=== PATIENT | female | born 1980 | race Caucasian/White ===

== ENCOUNTER 2021-05-28 14:30 | Emergency (ER) | payer SELFPAY ==
--- OUTSIDE RECORDS SUMMARY | 2021-05-28 14:33 | XMS REPORT | Continuity of Care Document ---
:1980 Author Organization [facility] t Address 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 Attending Clinician SPEAR Attending Clinician Unavailable Payers Payer Name Policy Type Policy Number Effective Date Expiration Date S ource Advance Directives Directive Decision Effective Termination Comments Source Date Date Healthcare Agents on N/A Univ ersity FileNameRelationshipHealthcare [facility] Agent Medical RelationshipCommunicationRobert [facility] Care [phone] (Home) Problems Condition Condition Condition Status Onset Resolution Last Treating Co mments Source Name Details Category Date Date Treatment Clinician Date Disease Active U nivers care and care and 4-09 ity of [place]in[place] Medical immediatel immediatel Br anch y after y after delivery delivery Disease Active Unive rs delivery delivery 3-20 [place] Blood [place] Blood loss Disease Active U nivers anemia anemia 3-20 ity of 00:00: [address] S/P S/P Disease Active Univers 3-19 ity of section section 00:00: [address] Obesity Obesity Disease Active Univers (BMI (BMI 3-17 ity of 30-39.9) 30-39.9) 00:00: [place] 00 Medical Branch History of History of Disease Active 2016-03 U nivers anxiety anxiety 0-04 ity of 00:00: 00 Medical Branch H/O H/O Disease Active 2016-03 Univers gastric gastric 0-04 ity of bypass bypass 00:00: [place] [facility] History of History of Disease Active U nivers depression depression 1-10 it y of 00:00: [place] [facility] Tobacco Tobacco Disease Active 2012-03 Univers use use 0-02 ity of disorder disorder 00:00: [place] [facility] Allergies, Adverse Reactions, Alerts Allergy Allergy Status Severity Reaction(s) Onset Inactive Treating Comm ents Source Name Type Date Date Clinician Meperidi Propensi Active Hallucinatio 2012-03 Univers ne Hcl ty to ns 0-02 ity of adverse 00:00: [place] reaction 00 [facility] MEPERIDI DRUG Active Hallucinates 2012-03 Un claudio NE HCL INGREDI 0-02 ity of 00:00: [place] [facility] Social History Social Habit Start Date Stop Date Quantity Comments Source History of tobacco 1999-03-25 Cigarette Smoker University of use 00:00:00 [facility] Exposure to Not sure [place] of SARS-CoV-2 (event) [facility] Alcohol intake 2021-05-11 2021-05-11 Current University of 00:00:00 00:00:00 non-drinker of [facility] alcohol Branch (finding) Cigarettes smoked 2016-02-15 2016-02-15 Univers ity of current (pack per 00:00:00 00:00:00 [place] ) - Reported Branch Cigarette 2016-02-15 2016-02-15 University of pack-years 00:00:00 00:00:00 [facility] Tobacco use and 2016-02-15 2016-02-15 Never used Universit y of exposure 00:00:00 00:00:00 [facility] Sex Assigned At [birth year] Universit y of 00:00:00 00:00:00 [facility] Smoking Status Start Date Stop Date Source Current every day smoker 2016-02-15 00:00:00 Uni versity of [facility] Medications Ordered Filled Start Stop Current Ordering Indication Dosage Frequency Signature Comments Components Source Medication Medication Date Date Medication? Clinician (SIG) Name Name hydrOXYzine Yes [id number] 25mg Take 1 Univers 25 mg 2-17 tablet by ity of tablet 00:00: mouth [place] 00 every 6 Medical (six) Branch hours as needed for Itching. permethrin 2021- Yes [id number] Apply to Univers 1 % lotion -17 05-12 area(s) ity o f 00:00: 05:59 once now [place] 00 :00 for 1 Medical dose. Branch follow package directions Yes 1{tbl} Take 1 Unive rs vitamin 3-19 tablet by ity of w/FA tablet 00:00: mouth [place] 00 daily. Medical Branch docusate Yes 240mg Take 1 Univer s calcium 240 3-19 capsule by it y of mg capsule 00:00: mouth [place] 00 daily as Medical needed for Branch Constipati on. ferrous Yes 325mg Take 1 Univers sulfate 325 3-19 tablet by ity of mg (65 mg 00:00: mouth 2 [place] iron) 00 (two) Medical tablet times Branch daily. ibuprofen Yes 600mg Take 1 Unive rs 600 mg 3-19 tablet by ity of tablet 00:00: mouth [place] 00 every 6 Medical (six) Branch hours as needed for Pain (scale 1-3) or Pain (scale 4-6) (Pain). Take with food or milk. HYDROcodone Yes 1{tbl} Take 1-2 Univers -acetaminop 3-19 tablets by it y of hen 5-325 00:00: mouth [place] mg tablet 00 every 6 Medical (six) Branch hours as needed for Pain (scale 4-6). Do not exceed 3 grams of acetaminop hen in 24 hours. Immunizations Ordered Filled Immunization Date Status Comments Sour e Immunization Name Name TDAP 2017-03-22 Completed University of 00:00:00 [facility] Influenza Virus 2016-12-26 Completed Universit y of Vaccine Quad IM 3+ 00:00:00 [facility] Branch PPD (TB) 2016-12-26 Completed University of 00:00:00 [facility] TDAP 2012-12-24 Completed University of 00:00:00 [facility] Rubella 2010-02-28 Completed University of 00:00:00 [facility] Td 2001-03-25 Completed University of 00:00:00 [facility] Vital Signs Vital Name Observation Time Observation Value Comments Source Systolic blood 2021-05-12 01:06:00 128 mm[Hg] Univer sity of pressure [facility] Diastolic blood 2021-05-12 01:06:00 77 mm[Hg] Unive rsity of pressure [facility] Heart rate 2021-05-12 01:06:00 71 /min Universi ty of [facility] Body temperature 2021-05-12 01:06:00 36.89 Bianca [facility] Respiratory rate 2021-05-12 01:06:00 16 /min [facility] ersity of [facility] Body height 2021-05-12 01:06:00 160 cm Universi ty of [facility] Body weight 2021-05-12 01:06:00 56.7 kg Universi ty [facility] BMI 2021-05-12 01:06:00 22.14 kg/m2 [facility] Oxygen saturation in 2021-05-12 01:06:00 100 /min [facility] Arterial blood by [facility] Pulse oximetry Branch Procedures Procedure Date / Time Performed Performing Clinician Sour e NOTICE OF PRIVACY 2021-05-12 01:02:04 Doctor Unassigned, No Univ [facility] PRACTICES Name [facility] CONSENT/REFUSAL FOR 2021-05-12 01:01:02 [facility]igned, [facility] DI[facility]NOSIS AND Name Medical Branch TREATMENT Encounters Start End Encounter Admission Attending Care Care Encounter Source Date/Time Date/Time Type Type Clinicians Facility Department ID 2021-05-11 2021-05-11 Emergency Spear, [facility] [id number] Univers 19:09:00 20:34:00 Janey GUAJARDO [id number] i ty [facility] [id number] [facility] [id number] Medi lacey 084 Branch 2021-05-11 2021-05-11 Emergency X RAINER, [facility] ERT [id number] Univers 19:09:00 20:34:00 JANEY manjarrez [facility] Results This patient has no known results.
--- NOTE | 2021-05-28 14:55 | EDPHYS ---
Physician Documentation [facility] Name: Melissa Saunders Age: 40 yrs Sex: Female : 1980 Arrival Date: 05/28/2021 Time: 14:32 Bed Waiting Private MD: ED Physician Thomas Higgins HPI: 05/28 14:55 This 40 yrs old Female presents to ER via Ambulatory with complaints of Allergic kb Reaction. 14:55 The patient presents with rash. Onset: The symptoms/episode began/occurred has been on kb and off for a year. Associated signs and symptoms: Pertinent positives: itching. Possible causes: The patient has no known obvious cause for the symptoms. At home the patient or guardian has treated the symptoms with nothing. Severity of symptoms: At their worst the symptoms were moderate in the emergency department the symptoms are unchanged. The patient has not experienced similar symptoms in the past. The patient has not recently seen a physician. Pt states she has had a rash that comes and goes for a year. States she has seen dr ordonez for this several times and he has done tests and given medications, but they haven't taken it away. 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 - Social history:: Smoking status: Patient reports the use of cigarette tobacco products, smokes one pack cigarettes per day. ROS: 14:55 Constitutional: Negative for fever, chills, and weight loss. kb 14:55 Skin: Positive for of the face, right arm and left arm. 14:55 All other systems are negative. Exam: 14:54 Constitutional: This is a well developed, well nourished patient who is awake, alert, kb and in no acute distress. Head/Face: Normocephalic, atraumatic. ENT: Moist Mucous membranes Cardiovascular: Regular rate and rhythm with a normal S1 and S2. No gallops, murmurs, or rubs. No pulse deficits. Respiratory: Respirations even and unlabored. No increased work of breathing. Talking in full sentences MS/ Extremity: Pulses equal, no cyanosis. Neurovascular intact. Full, normal range of motion. Neuro: Awake and alert, GCS 15, oriented to person, place, time, and situation. Moves all extremities. Normal gait. Psych: Awake, alert, with orientation to person, place and time. Behavior, mood, and affect are within normal limits. 14:54 Skin: rash a mild rash is noted, on the face. Vital Signs: 14:47 BP 140 / 63; Pulse 96; Resp 16; Pulse Ox 100% ; Weight 54.43 kg; Height 5 ft. 4 in. vg1 (162.56 cm); Pain 0/10; 14:47 Body Mass Index 20.60 (54.43 kg, 162.56 cm) vg1 MDM: 14:53 Data reviewed: vital signs, nurses notes. Data interpreted: Pulse oximetry: on room air kb is 100 %. Interpretation: normal. Counseling: I had a detailed discussion with the patient and/or guardian regarding: the historical points, exam findings, and any diagnostic results supporting the discharge/admit diagnosis, the need for outpatient follow up, a family practitioner, to return to the emergency department if symptoms worsen or persist or if there are any questions or concerns that arise at home. 14:53 Patient medically screened. kb Administered Medications: No medications were administered Disposition: 18:52 Co-signature as Attending Physician, Thomas Higgins MD I agree with the assessment and rn plan of care. Attestation: The patient's history, exam findings, diagnostics, and a summary of any interventions or procedures was reviewed in detail with Jennie SAVAGE. Disposition Summary: 05/28/21 14:53 Discharge Ordered Location: Home kb Condition: Stable kb Diagnosis - Rash and other nonspecific skin eruption kb Followup: kb - With: Emergency Department - When: As needed - Reason: Worsening of condition Followup: kb - With: Private Physician - When: 2 - 3 days - Reason: Recheck today's complaints, Continuance of care, Re-evaluation by your physician Discharge Instructions: - Discharge Summary Sheet kb - Rash, Adult, [id number] kb Forms: - Medication Reconciliation Form kb - Thank You Letter kb - Antibiotic Education kb - Prescription Opioid Use kb Prescriptions: - Elimite 5 % Topical Cream - apply 1 application by TOPICAL route one time Wash after 12 hours.; 60 gram; kb Refills: 0, Product Selection Permitted - Doxycycline Hyclate 100 mg Oral Tablet - take 1 tablet by ORAL route every 12 hours; 14 tablet; Refills: 0, Product kb Selection Permitted Signatures: Jennie Kinney, JANETTE JIMENEZ-Thomas Arce MD MD rn Giovani, SHAKIRA Cline RN vg1
--- NOTE | 2021-05-28 14:55 | ER ---
Nurse's Notes [facility] Name: Melissa Saunders Age: 40 yrs Sex: Female : 1980 Arrival Date: 05/28/2021 Time: 14:32 Bed Waiting Private MD: Diagnosis: Rash and other nonspecific skin eruption Presentation: 05/28 14:47 Chief complaint: Patient states: "Im having another allergic reaction but im not too vg1 sure to what" Has been seeing Dr Zhou for a skin rash. States rash on GISEL arms and face. Coronavirus screen: Vaccine status: Patient reports receiving the 2nd dose of the covid vaccine. Client denies travel out of the [place] in the last 14 days. Ebola Screen: Patient negative for fever greater than or equal to 101.5 degrees Fahrenheit, and additional compatible Ebola Virus Disease symptoms. Onset: The symptoms/episode began/occurred 1 year(s) ago. Anaphylaxis evaluation, no signs or symptoms of anaphylaxis were noted. Initial Sepsis Screen: Does the patient meet any 2 criteria? No. Patient's initial sepsis screen is negative. Does the patient have a suspected source of infection? No. Patient's initial sepsis screen is negative. Risk Assessment: Do you want to hurt yourself or someone else? Patient reports no desire to harm self or others. Onset of symptoms was May 2020. 14:47 Method Of Arrival: Ambulatory 1 14:47 Acuity: BETH 4 vg1 Triage Assessment: 14:51 General: Appears in no apparent distress. uncomfortable, Behavior is cooperative. Pain: vg1 Denies pain. 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 - Social history:: Smoking status: Patient reports the use of cigarette tobacco products, smokes one pack cigarettes per day. Screenin:57 Abuse screen: Denies threats or abuse. Nutritional screening: No deficits noted. vg1 Tuberculosis screening: No symptoms or risk factors identified. Fall Risk No fall in past 12 months (0 pts). No secondary diagnosis (0 pts). No IV (0 pts). Ambulatory Aid- None/Bed Rest/Nurse Assist (0 pts). Gait- Normal/Bed Rest/Wheelchair (0 pts) Mental Status- Oriented to own ability (0 pts). Total Peguero Fall Scale indicates No Risk (0-24 pts). Assessment: 14:58 Respiratory: Airway is patent Respiratory effort is even, unlabored, Breath sounds are vg1 clear bilaterally. Vital Signs: 14:47 BP 140 / 63; Pulse 96; Resp 16; Pulse Ox 100% ; Weight 54.43 kg; Height 5 ft. 4 in. vg1 (162.56 cm); Pain 0/10; 14:47 Body Mass Index 20.60 (54.43 kg, 162.56 cm) vg1 ED Course: 14:32 Patient arrived in ED. as 14:37 Jennie Kinney FNP-C is [facility]. kb 14:37 Thomas Higgins MD is Attending Physician. kb 14:51 Triage completed. vg1 14:51 Arm band placed on. vg1 14:57 Patient has correct armband on for positive identification. vg1 14:57 No provider procedures requiring assistance completed. Patient did not have IV access vg1 during this emergency room visit. Administered Medications: No medications were administered Outcome: 14:53 Discharge ordered by . kb 14:57 Discharged to home ambulatory. vg1 14:57 Condition: good 14:57 Discharge instructions given to patient, Instructed on discharge instructions, follow up and referral plans. medication usage, Demonstrated understanding of instructions, follow-up care, medications, Prescriptions given X 2. 14:58 Patient left the ED. vg1 Signatures: Jennie Kinney FNP-C FNP-Keira Griffith Victoria, RN RN vg1
[2021-05-28 15:03] VITALS: BP 140/63; O2SAT 100
== END 2021-05-28 14:58 | disposition home or self-care (01) ==
LOC: ER 14:30
DX: R21 Rash and other nonspecific skin eruption (principal); F17.210 Nicotine dependence, cigarettes, uncomplicated; Z88.5 Allergy status to narcotic agent
CPT/HCPCS: 99281

== ENCOUNTER 2021-07-11 15:32 | Emergency (ER) | payer SELFPAY ==
--- OUTSIDE RECORDS SUMMARY | 2021-07-11 15:36 | XMS REPORT | Continuity of Care Document ---
:1980 Author Organization [facility] t Address 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 Clinician SPEAR Attending Clinician Unavailable Nguyen_Tho Admitting Clinician Unavailable Payers Payer Name Policy Type Policy Number Effective Date Expiration Date S ource Advance Directives Directive Decision Effective Termination Comments Source Date Date Healthcare Agents on N/A Univ ersity FileNameRelationB[facility] Agent Medical RelationshipCommunicationRobert Branch [facility] Care [phone] (Home) Problems Condition Condition Condition Status Onset [...] 3-20 [place] [address] Blood loss Blood loss Disease Active U nivers anemia anemia 3-20 ity of 00:00: [address] S/P S/P Disease Active Univers 3-19 ity of section section 00:00: [place] 00 Medical Branch Obesity Obesity Disease Active Univers (BMI (BMI 3-17 ity of 30-39.9) 30-39.9) 00:00: [place] 00 Medical Branch History of History of Disease Active 2016-03 U hectorers anxiety anxiety 0-04 ity of 00:00: [place] 00 Medical Branch H/O H/O Disease Active 2016-03 Univers gastric gastric 0-04 ity of bypass bypass 00:00: [place] 00 Medical Branch History of History of Disease Active U nivers depression depression 1-10 it y of 00:00: [place] 00 [facility] Branch Tobacco Tobacco Disease Active 2012-03 Univers use use 0-02 ity of disorder disorder 00:00: [place] 00 [facility] [place] Allergies, Adverse Reactions, Alerts Allergy Allergy Status Severity Reaction(s) Onset Inactive Treating Comm ents Source Name Type Date Date Clinician Meperidi Propensi Active Hallucinatio 2012-03 Univers ne Hcl ty to ns 0-02 ity of adverse 00:00: [place] reaction 00 Medical s Branch MEPERIDI DRUG Active Hallucinates 2012-03 Un claudio NE HCL INGREDI 0-02 ity of 00:00: [place] 00 [facility] Social History Social Habit Start Date Stop Date Quantity Comments Source History of tobacco 1999-03-25 Cigarette Smoker University of use 00:00:00 [facility] Exposure to Not sure [place] of SARS-CoV-2 (event) [facility] Alcohol intake 2021-05-11 2021-05-11 Current University of 00:00:00 00:00:00 non-drinker of [facility] alcohol Branch (finding) Cigarettes smoked 2016-02-15 2016-02-15 Univers ity of current (pack per 00:00:00 00:00:00 ) - Reported Branch Cigarette 2016-02-15 2016-02-15 University of pack-years 00:00:00 00:00:00 [facility] Tobacco use and 2016-02-15 2016-02-15 Never used Universit y of exposure 00:00:00 00:00:00 [facility] Sex Assigned At [birth year] Universit y of 00:00:00 00:00:00 [facility] Smoking Status Start Date Stop Date Source Current every day smoker 2016-02-15 00:00:00 Uni versity of [facility] Medications Ordered Filled Start Stop Current Ordering Indication Dosage Frequency Signature Comments Components Source Medication Medication Date Date Medication? Clinician (SIG) Name Name hydrOXYzine Yes [id number] 25mg Take 1 Univers 25 mg 2-17 tablet by ity of tablet 00:00: mouth [place] 00 every 6 Medical (six) Branch hours as needed for Itching. permethrin 2021- Yes [id number] Apply to Univers 1 % lotion 2-17 05-12 area(s) ity o f 00:00: 05:59 [...] e Immunization Name Name TDAP 2017-03-22 Completed [facility] 00:00:00 [facility] Influenza Virus 2016-12-26 Completed Universit y of Vaccine Quad IM 3+ 00:00:00 [place] [facility] Branch PPD (TB) 2016-12-26 Completed [facility] 00:00:00 [facility] TDAP 2012-12-24 Completed University 00:00:00 [facility] Rubella 2010-02-28 Completed University 00:00:00 [facility] Td 2001-03-25 Completed [facility] 00:00:00 [facility] Vital Signs Vital Name Observation Time Observation Value Comments Source Systolic blood 2021-05-12 01:06:00 128 mm[Hg] Univer sity of pressure [facility] Diastolic blood 2021-05-12 01:06:00 77 mm[Hg] Unive rsity of [facility] Heart rate 2021-05-12 01:06:00 71 /min [facility] Body temperature 2021-05-12 01:06:00 36.89 Bianca [facility] Res[facility] rate 2021-05-12 01:06:00 16 /min [facility] Body height 2021-05-12 01:06:00 160 cm [facility] Body weight 2021-05-12 01:06:00 56.7 kg [facility] BMI 2021-05-12 01:06:00 22.14 kg/m2 [facility] Oxygen saturation in 2021-05-12 01:06:00 100 /min [facility] Arterial blood by [facility] Pulse oximetry Branch Procedures Procedure Date / Time Performed Performing Clinician [facility] e NOTICE OF PRIVACY 2021-05-12 01:02:04 Doctor Unassigned, No Univ [facility] PRACTICES Name [facility] CONSENT/REFUSAL FOR 2021-05-12 01:01:02 [facility], [facility] DI[facility] AND Name Medical Branch TREATMENT Encounters Start End Encounter Admission Attending Care Care Encounter Source Date/Time Date/Time Type Type Clinicians Facility Department ID 2021-07-05 2021-07-05 [facility] [place] [id number] [place] 01:03:00 01:03:00 [id number] [facility] 2021-07-04 2021-07-04 [facility] [id number] [place] 01:42:00 01:42:00 [id number] [facility] 2021-05-11 2021-05-11 Emergency Spear, [facility] [id number] [facility] 19:09:00 20:34:00 Janey GUAJARDO [id number] i ty of [facility] [id number] [facility] [id number] [place] [id number] Branch 2021-05-11 2021-05-11 Emergency X RAINER [facility] [id number] Univers 19:09:00 20:34:00 JANEY manjarrez of [facility] Results This patient has no known results.
--- NOTE | 2021-07-11 15:46 | EDPHYS ---
Physician Documentation [facility] Name: Melissa Saunders Age: 40 yrs Sex: Female : 1980 Arrival Date: 07/11/2021 Time: 15:34 Bed Waiting Private MD: David Zhou H ED Physician Tanner Pierce HPI: 07/11 15:45 This 40 yrs old Female presents to ER via Ambulatory with complaints of Allergic pm1 Reaction, Itching. 15:45 The patient presents with rash, that is diffuse. pm1 15:45 Onset: The symptoms/episode began/occurred 1 year(s) ago. Associated signs and pm1 symptoms: The patient has no apparent associated signs or symptoms. Possible causes: Parasites. At home the patient or guardian has treated the symptoms with nothing. Severity of symptoms: in the emergency department the symptoms are unchanged. The patient has experienced similar episodes in the past, chronically. Patient has not been seen recently for the same rash but has seen PCP for this and has been given antiparasitic's without improvement. Historical: - Allergies: 15:43 Demerol; iw - PMHx: 15:43 Lupus erythematosus; Rheumatoid Arthritis; iw ROS: 15:45 Constitutional: Negative for fever, chills, and weight loss, Cardiovascular: Negative pm1 for chest pain, palpitations, and edema, Respiratory: Negative for shortness of breath, cough, wheezing, and pleuritic chest pain, Abdomen/GI: Negative for abdominal pain, nausea, vomiting, diarrhea, and constipation, MS/Extremity: Negative for injury and deformity. 15:45 Neuro: Negative for headache, weakness, numbness, tingling, and seizure. 15:45 Skin: Positive for rash, diffusely. 15:45 All other systems are negative. Exam: 15:45 Constitutional: This is a well developed, well nourished patient who is awake, alert, pm1 and in no acute distress. Head/Face: Normocephalic, atraumatic. 15:45 Cardiovascular: Exam negative for acute changes, Rate: normal, Rhythm: regular, Pulses: no pulse deficits are appreciated, Heart sounds: normal. 15:45 Respiratory: Exam negative for acute changes, respiratory distress, shortness of breath, Breath sounds: are clear throughout. 15:45 Skin: Exam negative for consistent with Abrasions from scratching. 15:45 Neuro: Exam negative for acute changes, Orientation: is normal, Mentation: is normal, Motor: is normal, moves all fours, Gait: is steady, at a normal pace, without difficulty. Vital Signs: 15:42 BP 114 / 91; Pulse 100; Resp 16; Temp 98.7; Pulse Ox 100% on R/A; iw MDM: 15:45 Data reviewed: vital signs. Data interpreted: Pulse oximetry: on is 100 %. pm1 Interpretation: normal. Counseling: I had a detailed discussion with the patient and/or guardian regarding: the historical points, exam findings, and any diagnostic results supporting the discharge/admit diagnosis, the need for outpatient follow up, to return to the emergency department if symptoms worsen or persist or if there are any questions or concerns that arise at home. 15:45 Patient medically screened. pm1 Administered Medications: No medications were administered Disposition Summary: 07/11/21 15:45 Discharge Ordered Location: Home pm1 Problem: new pm1 Symptoms: have improved pm1 Condition: Stable pm1 Diagnosis - Rash and other nonspecific skin eruption pm1 Followup: pm1 - With: Emergency Department - When: As needed - Reason: Worsening of condition Followup: pm1 - With: Private Physician - When: 2 - 3 days - Reason: Recheck today's complaints, Continuance of care, Re-evaluation by your physician Discharge Instructions: - Discharge Summary Sheet pm1 - Rash, Adult pm1 Forms: - Medication Reconciliation Form pm1 - Thank You Letter pm1 - Antibiotic Education pm1 - Prescription Opioid Use pm1 Prescriptions: - Vistaril 25 mg Oral capsule - take 1 capsule by ORAL route every 6 hours As needed; 20 capsule; Refills: 0, pm1 Product Selection Permitted - Doxycycline Hyclate 100 mg Oral Tablet - take 1 tablet by ORAL route every 12 hours; 20 tablet; Refills: 0, Product pm1 Selection Permitted Addendum: 07/13/2021 18:38 Co-signature as Attending Physician, Tanner Pierce MD. m a2 Signatures: Ashley Carreon, RN RN Garret Silva, [employer] LEADER pm1 Tanner Pierce MD MD [facility]
--- NOTE | 2021-07-11 15:46 | ER ---
Nurse's Notes [facility] Name: Melissa Saunders Age: 40 yrs Sex: Female : 1980 Arrival Date: 07/11/2021 Time: 15:34 Bed Waiting Private MD: David Zhou H Diagnosis: Rash and other nonspecific skin eruption Presentation: 07/11 15:42 Chief complaint: Patient states: parasites in her body X 1 year. Coronavirus screen: At iw this time, the client does not indicate any symptoms associated with coronavirus-19. Ebola Screen: Patient negative for fever greater than or equal to 101.5 degrees Fahrenheit, and additional compatible Ebola Virus Disease symptoms Patient denies exposure to infectious person. Patient denies travel to an Ebola-affected area in the 21 days before illness onset. No symptoms or risks identified at this time. Initial Sepsis Screen: Does the patient meet any 2 criteria? No. Patient's initial sepsis screen is negative. Does the patient have a suspected source of infection? No. Patient's initial sepsis screen is negative. 15:42 Method Of Arrival: Ambulatory iw 15:42 Acuity: BETH 4 iw 15:42 Risk Assessment: Do you want to hurt yourself or someone else? Patient reports no iw desire to harm self or others. Onset of symptoms was 2020. Historical: - Allergies: 15:43 Demerol; iw - PMHx: 15:43 Lupus erythematosus; Rheumatoid Arthritis; iw Vital Signs: 15:42 BP 114 / 91; Pulse 100; Resp 16; Temp 98.7; Pulse Ox 100% on R/A; iw ED Course: 15:34 Patient arrived in ED. am2 15:34 David Zhou DO is Private Physician. am2 15:42 Triage completed. iw 15:43 Arm band placed on. iw 15:45 Garret Fontaine NP is PHCP. pm1 15:45 Tanner Pierce MD is Attending Physician. pm1 17:25 Ashley Carreon RN is Primary Nurse. iw Administered Medications: No medications were administered Outcome: 15:45 Discharge ordered by MD. pm1 17:25 Patient left the ED. iw Signatures: Ashley Carreon RN RN iw Marinas, Garret, PUBLIC HEALTH WORKER PUBLIC HEALTH WORKER pm1 Gallegos, Korina am2
[2021-07-11 21:38] VITALS: BP 114/91; TEMP 98.7; O2SAT 100
== END 2021-07-11 17:25 | disposition home or self-care (01) ==
LOC: ER 15:32
DX: R21 Rash and other nonspecific skin eruption (principal); Z88.5 Allergy status to narcotic agent
CPT/HCPCS: 99281

== ENCOUNTER 2022-04-14 01:24 | Emergency (ER) | payer SELFPAY ==
--- OUTSIDE RECORDS SUMMARY | 2022-04-14 01:28 | XMS REPORT | Continuity of Care Document ---
:1980 Author Organization [facility] t Address [address] [place] [address] Care Team Providers Name Role Phone CHIDI AARON Primary Care Physician Unavailable Nguyen_Tho Attending Clinician Unavailable Johnny Javier Attending Clinician JOHNNY JOYNER Attending Clinician Unavailable Ashley Admitting Clinician Unavailable Payers Payer Name Policy Type Policy Number Effective Date Expiration Date S ource Problems Condition Condition Condition Status Onset Resolution Last Treating Co mments Source Name Details Category Date Date Treatment Clinician Date Disease Active U harjinder care and care and 4-09 ity [place] exam[place] [facility] immedi[place] immediatel Br [facility] y after y after delivery delivery Disease Active Unive rs delivery delivery 3-20 ity of delivered delivered 00:00: [place] [address] Blood loss Blood loss Disease Active U nivers anemia anemia 3-20 ity of 00:00: [address] S/P S/P Disease Active Univers 3-19 ity of section section 00:00: [address] Obesity Obesity Disease Active Univers (BMI (BMI 3-17 ity of 30-39.9) 30-39.9) 00:00: [place] 00 [facility] History of History of Disease Active 2016-03 U nivers anxiety anxiety 0-04 ity of 00:00: Medical Branch H/O H/O Disease Active 2016-03 Univers gastric gastric 0-04 ity of bypass bypass 00:00: [place] 00 Medical [place] History of History of Disease Active U nivers depression depression 1-10 it y of 00:00: [place] [facility] Tobacco Tobacco Disease Active 2012-03 Univers use use 0-02 ity of disorder disorder 00:00: [place] [facility] Allergies, Adverse Reactions, Alerts Allergy Allergy Status Severity Reaction(s) Onset Inactive Treating Comm ents Source Name Type Date Date Clinician Meperidi Propensi Active Hives Method i ne ty to 07-21 st adverse 00:00: Hospita reaction 00 l s to drug Meperidi Propensi Active Hallucinatio 2012-03 Univers ne Hcl ty to ns 0-02 ity of adverse 00:00: [place] reaction 00 Medical s Branch MEPERIDI DRUG Active Hallucinates 2012-03 Un claudio NE HCL INGREDI 0-02 ity of 00:00: [place] [facility] Social History Social Habit Start Date Stop Date Quantity Comments Source History of tobacco Smokes tobacco [facility] use daily Hospital Exposure to Not sure University of SARS-CoV-2 (event) [facility] Tobacco use and 2021-07-21 2021-07-21 Smokeless [facility] exposure 00:00:00 00:00:00 tobacco non-user Hospital Alcohol intake 2021-07-21 2021-07-21 Ex-drinker [facility] 00:00:00 00:00:00 (finding) Hospital Cigarettes smoked 2016-02-15 2016-02-15 Univers ity of current (pack per 00:00:00 00:00:00 ) - Reported Branch Cigarette 2016-02-15 2016-02-15 University of pack-years 00:00:00 00:00:00 [facility] Sex Ass[birth year] At [birth year] [facility] 00:00:00 00:00:00 Hospital Smoking Status Start Date Stop Date Source Smokes tobacco daily 2021-07-21 00:00:00 [facility] Medications Ordered Filled Start Stop Current Ordering Indication Dosage Frequency Signature Comments Components Source Medication Medication Date Date Medication? Clinician (SIG) Name Name No known No No known Metho di medications - medication st 16:35: s Hospita 17 l hydrOXYzine Yes [id number] 25mg Take 1 Univers 25 mg 2-17 tablet by ity of tablet 00:00: mouth [place] 00 every 6 Medical (six) Branch hours as needed for Itching. permethrin 2021- No [id number] Apply to Univers 1 % lotion 2-17 18 area(s) ity o f 00:00: 05:59 once [...] Immunizations Ordered Filled Immunization Date Status Comments [facility] Immunization Name Name TDAP 2017-03-22 Completed [facility] 00:00:00 [facility] Influenza Virus 2016-12-26 Completed Universit y of Vaccine Quad IM 3+ 00:00:00 [facility] PPD (TB) 2016-12-26 Completed [facility] 00:00:00 [facility] TDAP 2012-12-24 Completed University of 00:00:00 [facility] Rubella 2010-02-28 Completed University of 00:00:00 [facility] Td 2001-03-25 Completed [facility] 00:00:00 [facility] Vital Signs Vital Name Observation Time Observation Value Comments Source Systolic blood 2021-05-12 01:06:00 128 mm[Hg] Univer sity of pressure [facility] Diastolic blood 2021-05-12 01:06:00 77 mm[Hg] Unive rsity of [facility] Heart rate 2021-05-12 01:06:00 71 [facility] 2021-05-12 01:06:00 36.89 [facility] Respiratory rate 2021-05-12 01:06:00 16 /min [facility] Body height 2021-05-12 01:06:00 160 cm [facility] Body weight 2021-05-12 01:06:00 56.7 kg [facility] BMI 2021-05-12 01:06:00 22.14 kg/m2 [facility] Oxygen saturation in 2021-05-12 01:06:00 100 /min University Arterial blood by [facility] Pulse oximetry [place] Body height 2021-07-21 21:33:00 162.6 cm [facility] Body weight 2021-07-21 21:33:00 52.164 kg [facility] BMI 2021-07-21 21:33:00 19.74 kg/m2 [facility] Systolic blood 2021-07-21 21:29:01 123 mm[Hg] Method ist [facility] pressure Diastolic blood 2021-07-21 21:29:01 65 mm[Hg] [facility] pressure Heart rate 2021-07-21 21:29:01 90 /min [facility] Body temperature 2021-07-21 21:29:01 37.22 Bianca [facility] Respiratory rate 2021-07-21 21:29:01 18 /min [facility] Oxygen saturation in 2021-07-21 21:29:01 99 /min [facility] Arterial blood by Pulse oximetry Procedures Procedure Date / Time Performed Performing Clinician [facility] NOTICE OF PRIVACY 2021-05-12 01:02:04 Doctor Unassigned, No [facility] Name Medical Branch CONSENT/REFUSAL FOR 2021-05-12 01:01:02 [facility], [facility] AND Name Medical Branch TREATMENT Encounters Start End Encounter Admission Attending Care Care Encounter Source Date/Time Date/Time Type Type Clinicians Facility Department ID 2022-01-01 2022-01-01 Outpatient [facility] [id number] Romie 14:03:19 14:03:19 101[address] [facility] 2021-10-19 2021-10-19 Outpatient [place] [id number] [place] 00:00:[facility] 2021-08-20 2021-08-20 Outpatient Nguyen[place]Tho [place] [id number] [place] 11:12:00 11:12:00 [facility] 2021-07-21 2021-07-21 Emergency [id number] [facility] 16:29:00 19:17:[id number] [id number] Hospit [id number] l .8 2021-07-21 2021-07-21 Emergency [facility] [id number] [place] 00:00:00 00:00:[address] 2021-07-05 2021-07-05 Outpatient Nguyen_o [place] [id number] [place] 01:03:00 01:03:00 [id number] [facility] 2021-07-04 2021-07-04 Outpatient Ngen_Tho [facility] [id number] [place] 01:42:00 01:42:00 [id number] [facility] 2021-05-11 2021-05-11 [facility] [id number] Univers 19:09:00 20:34:00 Johnny GUAJARDO [id number] i ty of [facility] [id number] [facility] [id number] [address] 2021-05-11 2021-05-11 Emergency X RAINER, [facility] ERT [id number] 112 [facility] [place] 19:09:00 20:34:00 JOHNNY manjarrez of [facility] Results This patient has no known results.
[2022-04-14 02:25] LABS: Urine Blood Negative (Negative); Urine Glucose Negative (Negative); Urine Protein Negative (Negative)
[2022-04-14 02:50] LABS: Absolute Lymphocytes (CBC) 2.8 K/uL (0.7-4.9); Lymphocytes % 46.7 % (15.3-44.8); MPV 8.5 fL (7.6-11.3); RBC Red Blood Cell Count 3.36 M/uL (3.86-4.86)
[2022-04-14 02:52] LABS: Hematocrit 19.1 % (36.0-45.0)
[2022-04-14 02:55] LABS: Protime INR 0.97
[2022-04-14 03:12] LABS: ALT/SGPT 14 U/L (13-56); AST/SGOT 8 U/L (15-37); Albumin 3.6 g/dL (3.4-5.0); Alkaline Phosphatase 51 U/L (45-117); BUN Blood Urea Nitrogen 11 mg/dL (7-18); Bicarbonate 23 mmol/L (21-32); Bilirubin Total 0.2 mg/dL (0.2-1.0); Glomerular Filtration Rate 118 ml/min (=/>90); Glucose Level 90 mg/dL (74-106); Potassium 3.7 mmol/L (3.5-5.1); Protein, Total 6.4 g/dL (6.4-8.2); Sodium Level 140 mmol/L (136-145)
[2022-04-14 03:13] LABS: Bilirubin Direct < 0.1 mg/dL (0-0.2)
[2022-04-14 03:14] LABS: RBC Red Blood Cell Count 3.33 M/uL (3.86-4.86)
[2022-04-14] MEDS ORDERED: NA CHLORIDE 0.9% 1,000 ML ONE (03:28)
[2022-04-14 03:47] LABS: Anisocytosis 2+; Blood Morphology Comment NOTED (NOT SEEN); Hypochromasia 3+; Macrocytosis 1+; Ovalocytes 2+; Platelet Estimate ADEQ; Platelets, Giant OCC; Stomatocytes 1+
[2022-04-14 03:50] LABS: Barbiturates NEGATIVE (NEGATIVE); Benzodiazepines NEGATIVE (NEGATIVE); Cocaine NEGATIVE (NEGATIVE); METHAMPHETAM POSITIVE (NEGATIVE); Methadone NEGATIVE (NEGATIVE); Opiates NEGATIVE (NEGATIVE); Phencyclidine NEGATIVE (NEGATIVE); THC Cannibis NEGATIVE (NEGATIVE)
[2022-04-14 03:52] LABS: Ferritin 2.2 ng/mL (8-388)
--- NOTE | 2022-04-14 06:31 | ER ---
Nurse's Notes [facility] Name: Melissa Saunders Age: 41 yrs Sex: Female : 1980 Arrival Date: 04/14/2022 Time: 01:26 Bed 14 Private MD: Diagnosis: Abuse of other non-psychoactive substances;Iron deficiency anemia, unspecified;Systemic lupus erythematosus, unspecified;Adverse effect of amphetamines Presentation: 04/14 01:30 Chief complaint: Patient states: feel like im in a fog and in a panic at the same time. lg3 my chest feels numb but tingling at the same time on the left side. my heart is racing. Coronavirus screen: Client denies travel out of the [place] in the last 14 days. At this time, the client does not indicate any symptoms associated with coronavirus-19. Ebola Screen: No symptoms or risks identified at this time. Initial Sepsis Screen: Does the patient meet any 2 criteria? No. Patient's initial sepsis screen is negative. Does the patient have a suspected source of infection? No. Patient's initial sepsis screen is negative. Risk Assessment: Do you want to hurt yourself or someone else? Patient reports no desire to harm self or others. Onset of symptoms was April 13, 2022 at 23:30. 01:30 Method Of Arrival: Ambulatory lg3 01:30 Acuity: BETH 3 lg3 Triage Assessment: 01:33 General: Appears in no apparent distress. Behavior is anxious, restless. Pain: lg3 Complains of pain in anterior aspect of left upper chest Quality of pain is described as numb. EENT: No signs and/or symptoms were reported regarding the EENT system. Neuro: Cardona Agitation-Sedation Scale (RASS): 0 - Alert and Calm Level of Consciousness is awake, alert, obeys commands, Oriented to person, place, time, situation. Cardiovascular: Reports chest pain, Capillary refill < 3 seconds Clubbing of nail beds is absent JVD is absent Patient's skin is warm and dry. Respiratory: No deficits noted. Airway is patent Trachea midline Respiratory effort is even, unlabored, Respiratory pattern is regular, symmetrical. GI: No deficits noted. No signs and/or symptoms were reported involving the gastrointestinal system. Abdomen is round non-distended. : No deficits noted. No signs and/or symptoms were reported regarding the genitourinary system. Derm: No deficits noted. No signs and/or symptoms reported regarding the dermatologic system. Skin is intact, is healthy with good turgor, Skin is dry, Skin is normal. Musculoskeletal: No deficits noted. No signs and/or symptoms reported regarding the musculoskeletal system. Circulation, motion, and sensation intact. Range of motion: intact in all extremities. TAPE DUPLICATOR: 01:33 LMP 02/2022 lg3 Historical: - Allergies: 01:32 Demerol; lg3 - Home Meds: 01:32 Wellbutrin Oral [Active]; gabapentin Oral [Active]; Neurontin Oral [Active]; lg3 - PMHx: 01:32 Rheumatoid Arthritis; Lupus erythematosus; lg3 - PSHx: 01:32 gastric bypass; lg3 01:33 section; lg3 - Immunization history:: Adult Immunizations up to date, Client reports receiving the 2nd dose of the Covid vaccine, Flu vaccine is not up to date. - Social history:: Smoking status: Patient reports the use of cigarette tobacco products, smokes one pack cigarettes per day. Patient/guardian denies using alcohol, street drugs. - Family history:: not pertinent. Screenin:30 [facility] ED Fall Risk Assessment (Adult) History of falling in the last 3 months, ke1 including since admission No falls in past 3 months (0 pts) Confusion or Disorientation No (0 pts) Intoxicated or Sedated No (0 pts) Impaired Gait No (0 pts) Mobility Assist Device Used No (0 pt) Altered Elimination No (0 pt) Score/Fall Risk Level 0 - 2 = Low Risk Oriented to surroundings, Maintained a safe environment. Abuse screen: Denies threats or abuse. Nutritional screening: No deficits noted. Tuberculosis screening: No symptoms or risk factors identified. Assessment: 07:00 General: Appears in no apparent distress. comfortable, Behavior is calm, cooperative, kc6 appropriate for age. Pain: Denies pain. Neuro: Cardona Agitation-Sedation Scale (RASS): 0 - Alert and Calm Level of Consciousness is awake, alert, obeys commands, Oriented to person, place, time, situation, Appropriate for age. Cardiovascular: Heart tones S1 S2 present Capillary refill < 3 seconds. Respiratory: Airway is patent Trachea midline Respiratory effort is even, unlabored, Respiratory pattern is regular, symmetrical. GI: No signs and/or symptoms were reported involving the gastrointestinal system. : No signs and/or symptoms were reported regarding the genitourinary system. EENT: No signs and/or symptoms were reported regarding the EENT system. Derm: No signs and/or symptoms reported regarding the dermatologic system. Skin is intact, Skin is pink, warm \T\ dry. Musculoskeletal: No signs and/or symptoms reported regarding the musculoskeletal system. Circulation, motion, and sensation intact. Capillary refill < 3 seconds, Range of motion: intact in all extremities. 07:00 Reassessment: please refer to blood transfusion flow sheet for further documentation. kc6 08:00 Reassessment: Patient appears in no apparent distress at this time. No changes from kc6 previously documented assessment. Patient and/or family updated on plan of care and expected duration. Pain level reassessed. Patient is alert, oriented x 3, equal unlabored respirations, skin warm/dry/pink. Patient denies pain at this time. Vital Signs: 01:30 BP 126 / 76; Pulse 85; Resp 18 S; Temp 98.4(O); Pulse Ox 99% on R/A; Weight 63.5 kg lg3 (R); Height 5 ft. 4 in. (162.56 cm) (R); 04:49 BP 94 / 50; Pulse 80; Resp 17; Pulse Ox 98% ; ke1 07:00 BP 106 / 71; Pulse 72; Resp 17 S; Temp 98.6(O); Pulse Ox 98% on R/A; kc6 01:30 Body Mass Index 24.03 (63.50 kg, 162.56 cm) lg3 ED Course: 01:26 Patient arrived in ED. jj6 01:30 Bed in low position. Call light in reach. ke1 01:32 Triage completed. lg3 01:33 Arm band placed on right wrist. lg3 01:41 Yoni Godinez MD is Attending Physician. chris 02:46 Bert Cortez RN is Primary Nurse. ke1 03:05 CT Head Brain wo Cont In Process Unspecified. EDMS 06:30 Erasmo Sena MD is Referral Physician. chris 07:00 Report received from SHAKIRA Noel. client is received second unit of blood. will be kc6 discharged pending completion. Administered Medications: 03:20 Drug: NS 0.9% 1000 ml Route: IV; Rate: 1 bolus; Site: right antecubital; ke1 03:20 Drug: Ativan (LORazepam) 1 mg Route: IVP; Site: right antecubital; ke1 Outcome: 06:30 Discharge ordered by MD. perez 08:37 Patient left the ED. kc6 Signatures: Dispatcher [employer] EDNJ Yoni Godinez MD MD cha Gibson, Lacie, RN RN lg3 Rosa Dove Kouassi, RN RN ke1 [place] Harris RN RN kc6 Corrections: (The following items were deleted from the chart) 08:29 07:00 Report received from SHAKIRA Pastor6 kc6
--- NOTE | 2022-04-14 06:31 | EDPHYS ---
Physician Documentation [facility] Name: Melissa Saunders Age: 41 yrs Sex: Female : 1980 Arrival Date: 04/14/2022 Time: 01:26 Bed 14 Private MD: JHONNY Physician Yoni Godinez HPI: 04/14 02:32 This 41 yrs old Female presents to ER via Ambulatory with complaints of chris Dizziness. 02:32 The patient presents with dizziness, generalized weakness. Onset: The symptoms/episode chris began/occurred just prior to arrival. Context: occurred at home. Modifying factors: The symptoms are alleviated by nothing, the symptoms are aggravated by nothing. Associated signs and symptoms: Pertinent positives: near-syncope. Severity of symptoms: At their worst the symptoms were mild moderate in the emergency department the symptoms are unchanged. 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 - Social history:: Smoking status: Patient reports the use of cigarette tobacco products, smokes one pack cigarettes per day. Patient/guardian denies using alcohol, street drugs. - Family history:: not pertinent. ROS: 02:32 Constitutional: Negative for fever, chills, and weight loss, Eyes: Negative for injury, chris pain, redness, and discharge, ENT: Negative for injury, pain, and discharge, Neck: Negative for injury, pain, and swelling, Respiratory: Negative for shortness of breath, cough, wheezing, and pleuritic chest pain, Abdomen/GI: Negative for abdominal pain, nausea, vomiting, diarrhea, and constipation, Back: Negative for injury and pain, : Negative for injury, bleeding, discharge, and swelling, MS/Extremity: Negative for injury and deformity, Skin: Negative for injury, rash, and discoloration, Psych: Negative for depression, anxiety, suicide ideation, homicidal ideation, and hallucinations, Allergy/Immunology: Negative for hives, rash, and allergies, Endocrine: Negative for neck swelling, polydipsia, polyuria, polyphagia, and marked weight changes, Hematologic/Lymphatic: Negative for swollen nodes, abnormal bleeding, and unusual bruising. 02:32 Cardiovascular: Positive for palpitations. 02:32 Neuro: Positive for headache. Exam: 02:32 Constitutional: This is a well developed, well nourished patient who is awake, alert, chris and in no acute distress. Head/Face: Normocephalic, atraumatic. Eyes: Pupils equal round and reactive to light, extra-ocular motions intact. Lids and lashes normal. Conjunctiva and sclera are non-icteric and not injected. Cornea within normal limits. Periorbital areas with no swelling, redness, or edema. ENT: Nares patent. No nasal discharge, no septal abnormalities noted. Tympanic membranes are normal and external auditory canals are clear. Oropharynx with no redness, swelling, or masses, exudates, or evidence of obstruction, uvula midline. Mucous membranes moist. Neck: Trachea midline, no thyromegaly or masses palpated, and no cervical lymphadenopathy. Supple, full range of motion without nuchal rigidity, or vertebral point tenderness. No Meningismus. Chest/axilla: Normal chest wall appearance and motion. Nontender with no deformity. No lesions are appreciated. Cardiovascular: Regular rate and rhythm with a normal S1 and S2. No gallops, murmurs, or rubs. Normal PMI, no JVD. No pulse deficits. Respiratory: Lungs have equal breath sounds bilaterally, clear to auscultation and percussion. No rales, rhonchi or wheezes noted. No increased work of breathing, no retractions or nasal flaring. Abdomen/GI: Soft, non-tender, with normal bowel sounds. No distension or tympany. No guarding or rebound. No evidence of tenderness throughout. Back: No spinal tenderness. No costovertebral tenderness. Full range of motion. Pelvic Exam: Normal external genitalia. Speculum exam with closed cervical os, no discharge or bleeding noted. Bimanual exam with normal adnexa, no adnexal or cervical motion tenderness. Normal uterus. Female : Normal external genitalia. Skin: Warm, dry with normal turgor. Normal color with no rashes, no lesions, and no evidence of cellulitis. MS/ Extremity: Pulses equal, no cyanosis. Neurovascular intact. Full, normal range of motion. Neuro: Awake and alert, GCS 15, oriented to person, place, time, and situation. Cranial nerves II-XII grossly intact. Motor strength 5/5 in all extremities. Sensory grossly intact. Cerebellar exam normal. Normal gait. Psych: Awake, alert, with orientation to person, place and time. Behavior, mood, and affect are within normal limits. 02:43 Musculoskeletal/extremity: DVT Exam: No signs of deep vein thrombosis. no pain, no chris swelling, no tenderness, negative Homans' sign noted on exam, no appreciated bluish discoloration, no erythema, no increased warmth. 03:01 ECG was reviewed by the Attending Physician. [facility] Vital Signs: 01:30 BP 126 / 76; Pulse 85; Resp 18 S; Temp 98.4(O); Pulse Ox 99% on R/A; Weight 63.5 kg lg3 (R); Height 5 ft. 4 in. (162.56 cm) (R); 04:49 BP 94 / 50; Pulse 80; Resp 17; Pulse Ox 98% ; ke1 07:00 BP 106 / 71; Pulse 72; Resp 17 S; Temp 98.6(O); Pulse Ox 98% on R/A; kc6 01:30 Body Mass Index 24.03 (63.50 kg, 162.56 cm) lg3 MDM: 01:41 Patient medically screened. [facility] 02:34 Differential diagnosis: cardiac arrhythmia, CVA, generalized weakness, hypovolemia, chris near-syncope, . Data reviewed: vital signs, nurses notes, lab test result(s), EKG, radiologic studies. Consideration of Admission/Observation Patient was admitted/placed on observation. I considered the following discharge prescriptions or medication management in the emergency department Medications were administered in the Emergency Department. See MAR. Test considered but Not performed: MRI: mri na. 04/14 01:44 Order name: Acetaminophen; Complete Time: 04:30 [facility] 04/14 01:44 Order name: Basic Metabolic Panel; Complete Time: 04:30 [facility] 04/14 01:44 Order name: CBC with Diff; Complete Time: 04:30 [facility] 04/14 01:44 Order name: ETOH Level; Complete Time: 04:30 [facility] 04/14 01:44 Order name: Hepatic Function; Complete Time: 04:30 chris 04/14 01:44 Order name: PT-INR; Complete Time: 04:30 [facility] 04/14 01:44 Order name: Ptt, Activated; Complete Time: 04:30 [facility] 04/14 01:44 Order name: Salicylate; Complete Time: 04:30 chris 04/14 01:44 Order name: Urine Drug Screen; Complete Time: 04:30 chris 04/14 02:25 Order name: Urine --Ancillary (enter results); Complete Time: 02:53 ds4 04/14 02:25 Order name: Urine Dipstick-Ancillary; Complete Time: 02:39 EDMS 04/14 02:32 Order name: Troponin High Sensitivity; Complete Time: 04:30 wm 04/14 02:32 Order name: Troponin High Sensitivity [facility] 04/14 02:53 Order name: Manual Differential; Complete Time: 04:30 EDRI 04/14 01:44 Order name: EKG; Complete Time: 01:45 [facility] 04/14 01:44 Order name: EKG - Nurse/Tech; Complete Time: 02:50 [facility] 04/14 01:44 Order name: IV Saline Lock; Complete Time: 02:50 [facility] 04/14 01:44 Order name: Labs collected and sent; Complete Time: 02:50 [facility] 04/14 02:32 Order name: CT Head Brain wo Cont 04/14 02:59 Order name: Retic Count; Complete Time: 04:30 [facility] 04/14 02:59 Order name: Ferritin; Complete Time: 04:30 [facility] 04/14 02:59 Order name: TIBC; Complete Time: 04:30 [facility] 04/14 02:59 Order name: B12; Complete Time: 04:30 [facility] 04/14 02:59 Order name: Type And Screen [facility] 04/14 03:57 Order name: Packed RBC Leukored EDRI 04/14 04:52 Order name: ABO/RH no charge; Complete Time: 06:30 EDRI 04/14 01:44 Order name: Suicide Screening ([place]); Complete Time: 03:56 [facility] 04/14 01:44 Order name: Urine Dipstick-Ancillary (obtain specimen); Complete Time: 02:24 [facility] 04/14 01:44 Order name: Urine Test (obtain specimen); Complete Time: 02:24 chris 04/14 02:59 Order name: Transfuse; Complete Time: 06:55 chris EC:01 Rate is 74 beats/min. Rhythm is regular. QRS [place] is Normal. DC interval is normal. QRS chris interval is normal. QT interval is normal. No Q waves. T waves are Normal. No ST changes noted. Clinical impression: NSR w/ Non-specific ST/T Changes. Interpreted by me. Reviewed by me. Administered Medications: 03:20 Drug: NS 0.9% 1000 ml Route: IV; Rate: 1 bolus; Site: right antecubital; ke1 03:20 Drug: Ativan (LORazepam) 1 mg Route: IVP; Site: right antecubital; ke1 Disposition Summary: 04/14/22 06:30 Discharge Ordered Location: Home chris Problem: new chris Symptoms: have improved chris Condition: Stable chris Diagnosis - Abuse of other non-psychoactive substances chris - Iron deficiency anemia, unspecified chris - Systemic lupus erythematosus, unspecified chris - Adverse effect of amphetamines chris Followup: chris - With: Private Physician - When: 2 - 3 days - Reason: Recheck today's complaints, Continuance of care, Re-evaluation by your physician Followup: chris - With: - When: 2 - 3 days - Reason: Recheck today's complaints, Re-evaluation by your physician Discharge Instructions: - Discharge Summary Sheet chris - Amphetamines Use Disorder chris - Iron Deficiency Anemia, Adult chris - Anemia chris - Blood Transfusion, Adult chris - Iron-Rich Diet chris - Dizziness chris - Substance Use Disorder chris - Dizziness, [id number] chris - Substance Use Disorder and Mental Illness chris - Iron Deficiency Anemia, Adult, Lakl-ja-Hryy [facility] Forms: - Medication Reconciliation Form chris - Thank You Letter chris - Antibiotic Education chris - Prescription Opioid Use chris Prescriptions: - Ferrous Sulfate 325 mg (65 mg Iron) Oral Tablet - take 1 tablet by ORAL route every 8 hours; 90 tablet; Refills: 0, Product chris Selection Permitted - Pepcid 20 mg Oral Tablet - take 1 tablet by ORAL route every 12 hours for 30 days; 60 tablet; Refills: 0, chris Product Selection Permitted Signatures: Dispatcher [employer] EDYoni Spivey MD MD cha Attema, Lee, COMMUNITY ADVOCATE-C COMMUNITY ADVOCATE-Cla1 Renetta Eastman RN RN lg3 Maximus Cortezssi, RN RN ke1
[2022-04-14 08:49] VITALS: O2SAT 98
[2022-04-14 08:52] VITALS: BP 106/71; TEMP 98.6
--- NOTE | 2022-04-15 14:42 | RAD REPORT ---
EXAM DESCRIPTION: CT - Head Brain Wo Cont - 04/14/2022 6:16 am CLINICAL HISTORY: 41 years, Female, Headache, new or worsening, positional COMPARISON: None. FINDINGS: Multiple transaxial tomograms of the brain were obtained from the base of the skull to the vertex without contrast. 2-D multiplanar reformats and the coronal and sagittal plane were performed and reviewed. This exam was performed according to our departmental dose-optimization protocol, which includes auto mated exposure control, adjustment of the mA and/or kV according to patient size and/or use of iterat felix reconstruction technique. Brain parenchyma as well as the rodríguez and white matter differentiation demonstrate to be unremarkable. There is no midline shift and/or mass effect. There is no evidence for acute hemorrhage. No focal ar eas of hypodensities. Lateral ventricles and cisterns displace normal appearance. No intra or ext ra axial fluid collections were seen. The calvarium is intact with no evidence for fracture. The visu alized portions of the paranasal sinuses and orbits demonstrate to be clear. IMPRESSION: No acute intracranial hemorrhage identified. Unremarkable CT scan of the head without contrast. Electronically signed by: Mainor Ramirez MD 04/14/2022 3:18 AM CHILDCARE WORKER Due to temporary technical issues with the PACS/Fluency reporting system, reports are being signed by the in house radiologists without review as a courtesy to insure prompt reporting. The interpreting radiologist is fully responsible for the content of the report.
--- NOTE | 2022-04-16 16:58 | EKG ---
Test Date: 2022-04-14 Test Time: 02:45:40 Payloader Operator: MEÑO MEASUREMENT RESULTS: Intervals: Rate: 74 MA: 126 QRSD: 86 QT: 386 QTc: 428 [place]: P: 32 MA: 126 QRS: 71 T: 85 INTERPRETIVE STATEMENTS: Normal sinus rhythm Nonspecific ST abnormality Abnormal ECG No previous ECG available for comparison Electronically Signed On 04-16-22 16:55:18 STATEMENT CLERK by Everton Gallegos
== END 2022-04-14 08:37 | disposition home or self-care (01) ==
LOC: ER 01:24
PROC: 30233N1 Transfusion of Nonautologous Red Blood Cells into Peripheral Vein, Percutaneous Approach (ICD-10-PCS; principal; 2022-04-14)
DX: D50.9 Iron deficiency anemia, unspecified (principal); M32.9 Systemic lupus erythematosus, unspecified; F55.8 Abuse of other non-psychoactive substances; T43.625A Adverse effect of amphetamines, initial encounter; F17.210 Nicotine dependence, cigarettes, uncomplicated; Z88.5 Allergy status to narcotic agent
CPT/HCPCS: 36415; 70450; 80048; 80076; 80307; 81003; 81025; 82607; 82728; 83540; 84466; 84484; 85025; 85044; 85610; 85730; 86850; 86900; 86901; 93005; 96374; 99283; G0480; J7030; P9016